=== PATIENT | male | born 1995 | race Caucasian/White ===

== ENCOUNTER 2017-09-01 02:28 | Emergency (ER) | payer OTHER ==
--- NOTE | 2017-09-01 02:40 | EDPHY ---
H & P Stated Complaint: fall, chin lac, chipped tooth HPI/ROS: HPI CHIEF COMPLAINT: Alcohol intoxication, fall, multiple facial laceration, chipped front tooth HISTORY OF PRESENT ILLNESS: This patient is a 22-year-old male otherwise healthy no significant medical history he presents emergency room multiple facial lacerations. Patient went out this evening had multiple alcoholic beverages including multiple shots of multiple beers he got intoxicated he is running and tripped and fell on his face hit the bench. He hit the front of his face on the edge of the bench. He sustained a chin laceration middle of his chin that is approximately 6 cm in length horizontally. This is through and through. This goes intraorally to his lower lip. Additionally sustained a 3 cm vertically oriented right upper lip laceration. It goes to the vermilion border. Additionally he sustained a right eyebrow laceration 2 cm in horizontal length. Additionally he tore his upper frenulum of his upper lip. Additionally his tooth 8 is fractured off. Past Medical History: Denies medical history Past Surgical History: Denies surgical history Social History: [employer] student, senior, denies daily use of drugs alcohol tobacco. Family History: Noncontributory ROS REVIEW OF SYSTEMS: A comprehensive 10 point review of systems is otherwise negative aside from elements mentioned in the history of present illness. Exam Constitutional triage nursing summary reviewed, vital signs reviewed, awake/ alert. Eyes normal conjunctivae and sclera, EOMI, PERRLA. HENT normal inspection, atraumatic, moist mucus membranes, no epistaxis, neck supple/ no meningismus, no raccoon eyes. Respiratory clear to auscultation bilaterally, normal breath sounds, no respiratory distress, no wheezing. Cardiovascular rate normal, regular rhythm, no murmur, no edema, distal pulses normal. Gastrointestinal soft, non-tender, no rebound, no guarding, normal bowel sounds, no distension, no pulsatile mass. Genitourinary no CVA tenderness. Musculoskeletal no midline vertebral tenderness, full range of motion, no calf swelling, no tenderness of extremities, no meningismus, good pulses, neurovascularly intact. Skin FACE: He sustained a chin laceration middle of his chin that is approximately 6 cm in length horizontally. This is through and through. This goes intraorally to his lower lip. Additionally sustained a 3 cm vertically oriented right upper lip laceration. It goes to the vermilion border. Additionally he sustained a right eyebrow laceration 2 cm in horizontal length, and Lower Lip Intra-oral 5cm Laceration Additionally he tore his upper frenulum of his upper lip. Additionally his tooth 8 is fractured off. Midface stable. There is mild swelling over the right eyebrow. Neurologic awake, alert and oriented x 3, AAOx3, moves all 4 extremities equally, motor intact, sensory intact, CN II-XII intact, normal cerebellar, normal vision, normal speech. Psychiatric normal mood/affect. Heme/Lymph/Immune no lymphadenopathy. Differential Diagnosis: Includes but is not limited to in a particular order acute alcohol intoxication, multiple facial lacerations, lip laceration, chin laceration, eyebrow laceration, facial fractures, dental fractures Medical Decision Making: Plan for this patient will copiously irrigating clean all of his facial lacerations. Additionally will need to perform a CT scan of his head and face due to significant facial and head trauma. Patient's tetanus shot is up-to-date. Will start him on Augmentin as he has extensive facial lacerations to go into his oropharynx. Will need to copiously irrigate all the mouth clean them out explored for foreign bodies and suture all his wounds closed. Re-evaluation: Laceration Repair Procedure: Verbal Consent was obtained, Under sterile conditions, The patient had lidocaine with epinephrine used approximately 7ccs to local anesthetize the Chin laceration 7cm in horizontal lengh Laceration. The wound was copiously irrigated with sterile fluid, the wound was explored for foreign bodies there were none visualized, the wound was explored with a sterile glove to the base. There are no deep structures involved, including no arterial injury. SEVEN 6.O PROLENE interrupted Sutures were placed in this patient's laceration. He had good close approximation of the wound edges. He Tolerated this well. Laceration Repair Procedure: Verbal Consent was obtained, Under sterile conditions, The patient had lidocaine with epinephrine used approximately 2ccs to local anesthetize the RIGHT EYEBROW 2CM horizontal Laceration. The wound was copiously irrigated with sterile fluid, the wound was explored for foreign bodies there were none visualized, the wound was explored with a sterile glove to the base. There are no deep structures involved, including no arterial injury. TWO 6.O Prolene interrupted Sutures were placed in this patient's laceration. He had good close approximation of the wound edges. He Tolerated this well. Laceration Repair Procedure: Verbal Consent was obtained, Under sterile conditions, The patient had lidocaine with epinephrine used approximately 4ccs to local anesthetize the RIGHT UPPER LIP Vertically oriented 3CM through the Vermilion Border Laceration. The wound was copiously irrigated with sterile fluid, the wound was explored for foreign bodies there were none visualized, the wound was explored with a sterile glove to the base. There are no deep structures involved, including no arterial injury. THREE 5.O Rapide placed, additionally ONE interrupted 6.O PROLENE interrupted Sutures were placed in this patient's laceration. He had good close approximation of the wound edges. He Tolerated this well. Laceration Repair Procedure: Verbal Consent was obtained, Under sterile conditions, The patient had lidocaine with epinephrine used approximately 6ccs to local anesthetize the Lower Lip Intra-oral 5cm Laceration. The wound was copiously irrigated with sterile fluid, the wound was explored for foreign bodies There were two pieces of thooth removed from this laceration, the wound was explored with a sterile glove to the base. There are no deep structures involved, including no arterial injury. THREE 5.O RAPIDE, interrupted Sutures were placed in this patient's laceration. He had good close approximation of the wound edges. He Tolerated this well. Patient given 1st dose of Augmentin here in emergency room. Prescription for Augmentin provided. Recommend he follows up with dentistry about his fractured tooth. But some of his sutures are absorbable. However he does have 6 0 Prolene in his face that need to be removed in 7 days. Patient understands to have these removed in 7 days more than welcome to return here to have them removed. CT head and CT maxillofacial reviewed by Dr. Carr Radiology. No significant intracranial abnormality or significant facial fractures. CT of the face does show foreign body in the lower lip. 0448: I was able to Malka explore the patient's right lower lip laceration intraorally now was able to remove the foreign body seen on CT. He tolerated this very well. Patient understands to have his sutures removed in 7 days Return emergency room there is any further questions or concerns. Antibiotics as prescribed. Source: Patient - Personal History Current Tetanus/Diphtheria Vaccine: Yes - Medical/Surgical History Hx Asthma: No Hx Chronic Respiratory Disease: No Hx Diabetes: No Hx Cardiac Disease: No Hx Renal Disease: No Hx Cirrhosis: No Hx Alcoholism: No Hx HIV/AIDS: No Hx Splenectomy or Spleen Trauma: No Other PMH: denies - Social History Smoking Status: Never smoked Constitutional: Initial Vital Signs Temperature (C) 36.6 C 09/01/17 02:31 Heart Rate 103 H 09/01/17 02:31 Respiratory Rate 18 09/01/17 02:31 Blood Pressure 145/89 H 09/01/17 02:31 O2 Sat (%) 96 09/01/17 02:31 Allergies/Adverse Reactions: No Known Allergies Allergy (Unverified 09/01/17 02:33) Home Medications: Medication Instructions Recorded Amoxicillin/Clavulanate Pot 875 mg PO BID #14 tab 09/01/17 [Augmentin 875 MG TAB (*)] Medical Decision Making - Data Points Medications Given: Discontinued Medications Amoxicillin/Clavulanate Potassium (Augmentin 875mg) 875 mg PO EDNOW ONE PRN Reason: Protocol Stop: 09/01/17 03:32 Last Admin: 09/01/17 04:00 Dose: 875 mg Departure - Departure Disposition: Home, Routine, Self-Care Clinical Impression: Facial laceration Qualifiers: Encounter type: initial encounter Qualified Code(s): S01.81XA - Laceration without foreign body of other part of head, initial encounter Facial trauma Qualifiers: Encounter type: initial encounter Qualified Code(s): S09.93XA - Unspecified injury of face, initial encounter Alcohol intoxication Qualifiers: Complication of substance-induced condition: uncomplicated Qualified Code(s): F10.920 - Alcohol use, unspecified with intoxication, uncomplicated Condition: Good Instructions: Care For Your Stitches (ED), Laceration (ED), Contusion in Adults (ED) Additional Instructions: 1. Some of your sutures on her face need to be removed in 7 days 2. Please return to the emergency room to have the sutures removed. 3. Take antibiotics as prescribed prevent infection. 4. Follow up with the dentist about your fractured tooth. 5. Return emergency room if you have any further symptoms questions or concerns. 6. Ice your face. 7. Liquids and soft foods for the next 48-72 hours. Referrals: Dental 911 [Outside] - As per Instructions [facility] [Outside] - As per Instructions [facility] [Outside] - As per Instructions NONE *PRIMARY CARE P,. [Primary Care Provider] - As per Instructions Prescriptions: Amoxicillin/Clavulanate Pot [Augmentin 875 MG TAB (*)] 875 mg PO BID #14 tab
[2017-09-01] MEDS ORDERED: AMOXICILLIN/CLAVULANATE POT 875/125 MG TAB PO ONE (03:31)
[2017-09-01 05:20] VITALS: BP 142/79; PULSE 95; RESP 20; TEMP 98.2; O2SAT 95
== END 2017-09-01 04:50 | disposition home or self-care (01) ==
PROC: 0CQ0XZZ Repair Upper Lip, External Approach (ICD-10-PCS; principal; 2017-09-01)
PROC: 0CQ1XZZ Repair Lower Lip, External Approach (ICD-10-PCS; principal; 2017-09-01)
PROC: 0HQ1XZZ Repair Face Skin, External Approach (ICD-10-PCS; principal; 2017-09-01)
DX: S01.81XA Laceration without foreign body of other part of head, initial encounter (principal); F10.920 Alcohol use, unspecified with intoxication, uncomplicated; S01.511A Laceration without foreign body of lip, initial encounter; W01.190A Fall on same level from slipping, tripping and stumbling with subsequent striking against furniture, initial encounter; Y93.02 Activity, running